=== PATIENT | male | born 1945 | race Caucasian/White ===

== ENCOUNTER → 2016-10-23 | Outpatient (CLI) | payer OTHER, MEDICARE | LOC: BMCIMAGING 11:17 | PROVIDERS: ATTEND Internal Medicine | DX: Z13.83 Encounter for screening for respiratory disorder NEC (principal) | CPT/HCPCS: 82607-90 ==

== ENCOUNTER 2017-05-30 10:40 | Emergency (ER) | payer OTHER, MEDICARE ==
[2017-05-30 11:02] VITALS: RESP 16
--- NOTE | 2017-05-30 11:23 | CPEKG ---
Heart Rate: 42 RR Interval: 1429 P-R Interval: 212 QRSD Interval: 96 QT Interval: 444 QTC Interval: 371 P [place]: 39 QRS [place]: -6 T Wave [place]: 26 EKG Severity - OTHERWISE NORMAL ECG - EKG Impression: SINUS BRADYCARDIA Electronically Signed By: Carlos Platt 30-May-2017 15:22:51
[2017-05-30 11:34] LABS: % IMMATURE GRANULYOCYTES 0.2 % (0.0-1.1); ABSOLUTE IMMATURE GRANULOCYTES 0.01 10^3/uL (0.00-0.10); ADD DIFF? NO; ADD MORPH? NO; ADD SCAN? NO; ATYPICAL LYMPHOCYTE FLAG 0 (0-99); FRAGMENT RBC FLAG 0 (0-99); HEMATOCRIT 40.7 % (40.0-51.0); HEMOGLOBIN 14.1 g/dL (13.7-17.5); LEFT SHIFT FLG 0 (0-99); LIPEMIA HEMOLYSIS FLAG 90 (0-99); MEAN CELL HEMOGLOBIN 32.9 pg (27.9-34.1); MEAN CELL HEMOGLOBIN CONCENTR. 34.6 g/dL (32.4-36.7); MEAN CELL VOLUME 95.1 fL (81.5-99.8); PLATELET CLUMPS FLAG 0 (0-99); PLATELET COUNT 202 10^3/uL (150-400); RED BLOOD CELL COUNT 4.28 10^6/uL (4.40-6.38); RED CELL DISTRIBUTION WIDTH 12.5 % (11.5-15.2)
[2017-05-30 11:43] LABS: ALANINE AMINOTRANSFERASE 31 IU/L (21-72); ALBUMIN 2.6 g/dL (3.5-5.0); ALKALINE PHOSPHATASE 32 IU/L (38-126); ANION GAP 10 mEq/L (8-16); ASPARTATE AMINOTRANSFERASE 17 IU/L (17-59); BILIRUBIN,TOTAL 1.2 mg/dL (0.1-1.4); CARBON DIOXIDE 18 mEq/l (22-31); CHLORIDE 114 mEq/L (97-110); CREATININE 0.8 mg/dL (0.7-1.3); GLOMERULAR FILTRATION RATE > 60; GLUCOSE 66 mg/dL (70-100); POTASSIUM 3.1 mEq/L (3.5-5.2); SODIUM 142 mEq/L (134-144); TOTAL PROTEIN 4.7 g/dL (6.3-8.2)
[2017-05-30 11:55] LABS: TROPONIN I < 0.012 ng/mL (0.000-0.034)
[2017-05-30 14:26] VITALS: PULSE 55
--- NOTE | 2017-05-30 14:42 | EDPHY ---
H & P Time Seen by Provider: 05/30/17 11:27 HPI/ROS: HPI Fainted last night. 72-year-old male by private vehicle with his . This patient reports that last night just prior to eating dinner at about 7:00 p.m. he was standing for about 5-10 minutes. He reports that he walked to get something off of a table when he felt a sensation of lightheadedness coming on. He reports that he has had syncopal events in the past. He reports that it felt similar to that. He was able to make it to the couch but by the time he got to the couch she had lost consciousness. His states that he was unconscious for 2-3 minutes. She states that he was snoring loudly. There was no observed seizure activity. After this time. He cleared and came to. He told his that he did not want to go to the hospital. He slept for few hours then got up and felt fine and then went to bed for the night. He woke up this morning and felt fine. He presents the emergency department now to be evaluated. He had no associated sudden-onset headache, palpitations, shortness of breath, chest pain, loss of sensation or weakness associated with his syncopal event last night. He reports he took 20 mg of oral propranolol yesterday morning. ROS: Constitutional: No fever, no chills. As above. Eyes: No discharge. No changes in vision. ENT: No sore throat. No nasal congestion or rhinorrhea. Respiratory: No cough. No shortness of breath. Cardiac: No chest pain, no palpitations. Gastrointestinal: No abdominal pain, no vomiting, no diarrhea. Genitourinary: No hematuria. No dysuria or increased frequency with urination. Musculoskeletal: No back pain. No neck pain. No myalgias or arthralgias. Skin: No rashes. Neurological: No headache. No focal weakness or altered sensation. Past medical history: Atherosclerotic disease. Depression. He takes sertraline. He also takes propanolol intermittently, 20 mg for anxiety. Social history: Nonsmoker. Here with his . Drinks alcohol socially. Physical Exam: General Appearance: Alert, no distress. This patient is responding to questions appropriately and in full sentences. This patient appears well- hydrated and well-nourished. Head: He has a small contusion right upper forehead just at the hairline. No bony step-off or deformity noted on palpation. Eyes: Pupils equal and round no pallor or injection. No lid edema, erythema or injection. No nystagmus. No photophobia. ENT, Mouth: Mucous membranes are moist. The pharyngeal tissues are unremarkable. No edema or swelling. No asymmetry suggestive of abscess. No erythema or exudates. No tongue lacerations or abrasions. Respiratory: There are no retractions, lungs are clear to auscultation with good air movement bilaterally. Cardiovascular: Regular rate and rhythm. No murmur. Gastrointestinal: Abdomen is soft and nontender, no masses, bowel sounds normal. No focal tenderness at McBurney's point. No Langford sign. Neurological: Motor sensory function is grossly intact. Cranial nerves are normal. Gait is normal. Skin: Warm and dry, no rashes. Musculoskeletal: Neck is supple and nontender. No midline cervical, thoracic, lumbar tenderness on palpation. Extremities are symmetrical. All joints range without pain or impingement. Psychiatric: No agitation. No depression. Database: EKG: EKG time is 11:22 a.m.; EKG shows a narrow complex sinus bradycardia with a ventricular rate of 42. The [place], QRS, QT intervals are within normal limits. There are no ST-T wave changes indicative of ischemic or injury pattern. No evidence of right heart strain. No evidence of WPW, Brugada syndrome, hypertrophic cardiomyopathy. Interpreted by me. Imaging: CT scan of head without contrast: Normal. Results were discussed with staff radiologist Dr. Rene Roman. Procedures: Emergency department course: IV was placed. Patient was placed on a bus monitor. Vital signs reviewed. Patient is afebrile. His blood pressures have been normal. He has been bradycardic throughout his emergency department course. 2:15 p.m., results of diagnostic testing discussed with the patient and his . His is a former employee at our hospital. I discussed admission with the patient and his . The patient does not want to be admitted. I explained my reasoning for admitting him. In my professional opinion both he and his understand this reasoning and the risks to his health should he be discharged back home. Regardless he is requesting discharge. His consents to this. The patient competently engages in shared decision making. They demonstrate capacitance to make decisions. 2:45 p.m., patient was up and ambulatory around the emergency department. Asymptomatic with a normal gait. Plan will be as above. Patient will be discharged to home with his . They will follow up with her primary care physician on Thursday, Dr. Warren, the [facility]. I have instructed him to obtain a echocardiogram and carotid artery Dopplers through the [facility]. Strict return to emergency department precautions were reviewed with the 2 of them. All of their questions were answered. The patient was discharged home in good condition. Differential Diagnosis: The differential diagnosis on this patient includes but is not limited to vasovagal syncope, seizure. Acute coronary syndrome, pulmonary embolism, subarachnoid hemorrhage, CVA, arrhythmia unlikely. This represents a partial list of diagnoses considered. These considerations are based on history, physical exam, past history, reassessment and diagnostic testing. Smoking Status: Never smoked Constitutional: Initial Vital Signs Temperature (C) 36.9 C 05/30/17 10:58 Heart Rate 49 L 05/30/17 10:58 Respiratory Rate 16 05/30/17 10:58 Blood Pressure 129/79 H 05/30/17 10:58 O2 Sat (%) 95 05/30/17 10:58 O2 Delivery Mode Room Air Allergies/Adverse Reactions: No Known Allergies Allergy (Unverified 05/30/17 11:04) Home Medications: Medication Instructions Recorded Sertraline HCl 05/30/17 Medical Decision Making - Data Points Laboratory Results: Laboratory Results 05/30/17 11:15 05/30/17 11:15 Departure - Departure Disposition: Home, Routine, Self-Care Clinical Impression: Syncope Condition: Good Instructions: Syncope (ED) Additional Instructions: Read and follow provided instructions. Follow-up with your primary care physician, Dr. Warren, in 1-2 days for re- evaluation and further testing. You should obtain an echocardiogram and carotid artery Doppler ultrasounds. Do not take propranolol under any circumstances. No strenuous activity until cleared by your doctor. Drink lots of fluids. Keep well hydrated. Return to the emergency department for return of symptoms, lightheadedness, shortness of breath, chest pain, loss of sensation or weakness in your extremities or other serious concerns. Referrals: Benjamin Warren MD [Primary Care Provider] - As per Instructions
[2017-05-30 14:59] VITALS: BP 125/76; TEMP 98.6; O2SAT 98
== END 2017-05-30 15:05 | disposition home or self-care (01) ==
DX: R55 Syncope and collapse (principal)

== ENCOUNTER → 2017-06-02 | Outpatient (CLI) | payer OTHER, MEDICARE | LOC: BMCIMAGING 08:11 | PROVIDERS: ATTEND Internal Medicine | DX: R55 Syncope and collapse (principal) ==

== ENCOUNTER → 2017-06-05 | Outpatient (CLI) | payer OTHER, MEDICARE ==
--- NOTE | 2017-06-05 15:30 | CPR ---
[f rep st] NONINVASIVE CARDIAC PROCEDURE REPORT DATE OF PROCEDURE: 06/05/2017 PROCEDURE: Exercise nuclear stress test. INDICATION: The patient is a 72-year-old male who experienced a syncopal event. He had taken propra nolol for anxiety and also went for a prolonged bike ride that day. In the evening, he was getting d inner when he became dizzy and had a true syncopal event. He hit his head on the way down. DESCRIPTION OF PROCEDURE: Consent was obtained. The patient was placed on continuous telemetry. Hi s resting EKG revealed sinus bradycardia with a heart rate of 44. There were no EKG changes to sugge st ischemia. The patient walked on the treadmill for 10 minutes without any associated chest discomf ort. He remained in normal sinus rhythm with very rare PVCs. He had upsloping ST depression of half a millimeter diffusely with exertion. His EKG returned to baseline within 2 minutes of recovery. L ate in recovery, at approximately 4 minutes, he developed diffuse T-wave flattening. This was most p rominent in the inferior leads. He was asymptomatic with EKG changes. His blood pressure at rest was 120/78 and increased appropriately, peaking at 166/70. His blood pres sure returned to baseline 5 minutes into the recovery phase. PLAN: Await nuclear images. The patient should follow up with Dr. Aleksandar Moreland to discuss the results . /[id number]/MODL
== END ==
LOC: FIMAGING 12:57
PROVIDERS: ATTEND Internal Medicine
DX: R94.39 Abnormal result of other cardiovascular function study (principal); R55 Syncope and collapse
CPT/HCPCS: 78452; 93017; A9500

== ENCOUNTER → 2017-07-15 | Outpatient (CLI) | payer OTHER, MEDICARE | LOC: FCPNEURO 20:00 | PROVIDERS: ATTEND Psychiatry & Neurology Sleep Medicine | DX: G47.33 Obstructive sleep apnea (adult) (pediatric) (principal); G25.81 Restless legs syndrome ==

== ENCOUNTER 2017-09-30 09:13 | Day surgery (SDC) | payer OTHER, MEDICARE ==
[2017-09-30] MEDS ORDERED: LIDOCAINE 1% 300 MG/30 ML SDV SC ONE (09:16)
--- NOTE | 2017-09-30 11:35 | PDGENHP ---
History & Physical Chief Complaint: Syncope History of Present Illness: 72 year old with history of syncope of unclear eitiology. Presnets for [employer] implantable loop recorder. Relevant Physical Exam: Awake, alert, Appropriate. NSR
--- NOTE | 2017-09-30 11:50 | CPR ---
[f rep st] NONINVASIVE CARDIAC PROCEDURE REPORT DATE OF PROCEDURE: 09/30/2017 PROCEDURE PERFORMED: [employer] implantable loop recorder. INDICATION: Syncope. DESCRIPTION OF PROCEDURE: After informed consent was obtained, the patient was brought [facility]. The patient was given local anesthesia with 1% lidocaine. The 4th intercostal spac e 2 cm from midline was identified. Once appropriate level of anesthesia with lidocaine was placed, an incision was made with a scalpel blade, as well as the scalpel tool provided in the [employer] kit. A tract was made with the [employer] implantation device. The device was inserted without complicatio n. Patient tolerated the procedure well. Hemostasis was achieved. Steri-Strips were in place. Teg aderm and gauze dressing were applied postoperatively. He tolerated the procedure well. Device interrogation demonstrated normal device function with capture of P-waves demonstrating sinus rhythm. Program was set for syncope settings to detect pauses of 3 seconds or greater and bradycardi a 40 beats per minute or less and tachycardia greater than 150 beats per minute. Serial Number is [id number]. PLAN: 1. Patient will be discharged home. 2. Patient will be given instructions on remote monitoring. 3. Patient will present to the office in 1 week for wound check. 4. Patient has been given postoperative wound care instructions. /[id number]/MODL
== END 2017-09-30 11:30 | disposition home or self-care (01) ==
LOC: FCATH 09:13
PROVIDERS: ATTEND Internal Medicine Cardiovascular Disease
PROC: 0JH602Z Insertion of Monitoring Device into Chest Subcutaneous Tissue and Fascia, Open Approach (ICD-10-PCS; principal; 2017-09-30)
DX: R55 Syncope and collapse (principal); R00.1 Bradycardia, unspecified; Z96.653 Presence of artificial knee joint, bilateral; F41.9 Anxiety disorder, unspecified
CPT/HCPCS: C1764